=== PATIENT | male | born 1945 | race Caucasian/White ===

== ENCOUNTER 2021-09-07 11:18 | Outpatient (CLI) | payer MEDICARE, OTHER ==
[2021-09-07 20:28] LABS: SARS-CoV-2 PCR by NAA Not Detected (NotDetected)
== END 2021-09-07 11:19 | disposition home or self-care (01) ==
LOC: CSHLAB 11:18
PROVIDERS: ATTEND Internal Medicine Gastroenterology
DX: Z01.812 Encounter for preprocedural laboratory examination (principal); Z20.822 Contact with and (suspected) exposure to COVID-19
CPT/HCPCS: U0003; U0005

== ENCOUNTER 2021-09-10 07:46 | Day surgery (SDC) | payer MEDICARE, OTHER ==
[2021-09-10] MEDS ORDERED: Lidocaine 1% MPF 2 ML VIAL ONE (08:31)
[2021-09-10] MEDS ORDERED: PROPOFOL 60 ML ONE (10:07)
[2021-09-10] MEDS ORDERED: Lidocaine 1% PF 5 ML VIAL ONE (10:08)
== END 2021-09-10 12:40 | disposition home or self-care (01) ==
LOC: CSHSDC 07:46
PROVIDERS: ATTEND Internal Medicine Gastroenterology
PROC: 0DB68ZZ Excision of Stomach, Via Natural or Artificial Opening Endoscopic (ICD-10-PCS; principal; 2021-09-10)
PROC: 0DBN8ZZ Excision of Sigmoid Colon, Via Natural or Artificial Opening Endoscopic (ICD-10-PCS; 2021-09-10)
DX: Z12.11 Encounter for screening for malignant neoplasm of colon (principal); K63.5 Polyp of colon; K21.9 Gastro-esophageal reflux disease without esophagitis; K44.9 Diaphragmatic hernia without obstruction or gangrene; K25.9 Gastric ulcer, unspecified as acute or chronic, without hemorrhage or perforation; K64.9 Unspecified hemorrhoids
CPT/HCPCS: 88305; J2704

== ENCOUNTER 2023-02-24 08:47 | Day surgery (SDC) | payer MEDICARE, OTHER ==
[2023-02-22 14:20] VITALS: BMI 27.7
[2023-02-24] MEDS ORDERED: PROPOFOL 20 ML ONE (11:29)
[2023-02-24] MEDS ORDERED: Lidocaine 2% MPF 10 ML AMP (For Epidural Use) ONE (11:29)
== END 2023-02-24 12:27 | disposition home or self-care (01) ==
LOC: CSHSDC 08:47
PROVIDERS: ATTEND Internal Medicine Gastroenterology
PROC: 0DBM8ZZ Excision of Descending Colon, Via Natural or Artificial Opening Endoscopic (ICD-10-PCS; principal; 2023-02-24)
DX: D12.4 Benign neoplasm of descending colon (principal); C61 Malignant neoplasm of prostate; K21.9 Gastro-esophageal reflux disease without esophagitis; J30.9 Allergic rhinitis, unspecified; K64.9 Unspecified hemorrhoids; E78.5 Hyperlipidemia, unspecified; N40.0 Benign prostatic hyperplasia without lower urinary tract symptoms; I10 Essential (primary) hypertension; Z79.899 Other long term (current) drug therapy; Z80.0 Family history of malignant neoplasm of digestive organs
CPT/HCPCS: 88305; J2704

== ENCOUNTER 2024-04-16 08:47 | Outpatient (CLI) | payer MEDICARE, OTHER | END 2024-04-16 08:48 | disposition home or self-care (01) | LOC: CSHULT 08:47 | PROVIDERS: ATTEND Family Medicine | DX: Z13.6 Encounter for screening for cardiovascular disorders (principal); Z87.891 Personal history of nicotine dependence | CPT/HCPCS: 76706 ==

== ENCOUNTER 2025-04-29 13:29 | Outpatient (CLI) | payer MEDICARE, OTHER | END 2025-04-29 13:30 | disposition home or self-care (01) | LOC: CSHWCC 13:29 | PROVIDERS: ATTEND Nurse Practitioner Family | DX: T70.0XXD Otitic barotrauma, subsequent encounter (principal); N30.00 Acute cystitis without hematuria; R30.0 Dysuria; Z92.3 Personal history of irradiation | CPT/HCPCS: G0277 ==

== ENCOUNTER 2025-05-20 14:46 | Outpatient (CLI) | payer MEDICARE, OTHER | END 2025-05-20 14:47 | disposition home or self-care (01) | LOC: CSHWCC 14:46 | PROVIDERS: ATTEND Nurse Practitioner Family | DX: T70.0XXD Otitic barotrauma, subsequent encounter (principal); N30.00 Acute cystitis without hematuria; R30.0 Dysuria; Z92.3 Personal history of irradiation | CPT/HCPCS: G0277 ==

== ENCOUNTER 2025-05-21 12:51 | Outpatient (CLI) | payer MEDICARE, OTHER | END 2025-05-21 12:52 | disposition home or self-care (01) | LOC: CSHWCC 12:51 | PROVIDERS: ATTEND Nurse Practitioner Family | DX: T70.0XXD Otitic barotrauma, subsequent encounter (principal); N30.00 Acute cystitis without hematuria; R30.0 Dysuria; Z92.3 Personal history of irradiation | CPT/HCPCS: G0277 ==

== ENCOUNTER 2025-05-22 13:13 | Outpatient (CLI) | payer MEDICARE, OTHER | END 2025-05-22 13:14 | disposition home or self-care (01) | LOC: CSHWCC 13:13 | PROVIDERS: ATTEND Nurse Practitioner Family | DX: T70.0XXD Otitic barotrauma, subsequent encounter (principal); N30.00 Acute cystitis without hematuria; R30.0 Dysuria; Z92.3 Personal history of irradiation; L59.8 Other specified disorders of the skin and subcutaneous tissue related to radiation; Y84.2 Radiological procedure and radiotherapy as the cause of abnormal reaction of the patient, or of later complication, without mention of misadventure at the time of the procedure | CPT/HCPCS: G0277 ==

== ENCOUNTER 2025-05-29 13:10 | Outpatient (CLI) | payer MEDICARE, OTHER | END 2025-05-29 13:11 | disposition home or self-care (01) | LOC: CSHWCC 13:10 | PROVIDERS: ATTEND Nurse Practitioner Family | DX: T70.0XXD Otitic barotrauma, subsequent encounter (principal); N30.00 Acute cystitis without hematuria; R30.0 Dysuria; Z92.3 Personal history of irradiation | CPT/HCPCS: G0277 ==

== ENCOUNTER 2025-06-04 12:30 | Outpatient (CLI) | payer MEDICARE, OTHER | END 2025-06-04 12:31 | disposition home or self-care (01) | LOC: CSHWCC 12:30 | PROVIDERS: ATTEND Nurse Practitioner Family | DX: T70.0XXD Otitic barotrauma, subsequent encounter (principal); N30.00 Acute cystitis without hematuria; R30.0 Dysuria; Z92.3 Personal history of irradiation; L59.8 Other specified disorders of the skin and subcutaneous tissue related to radiation; Y84.2 Radiological procedure and radiotherapy as the cause of abnormal reaction of the patient, or of later complication, without mention of misadventure at the time of the procedure | CPT/HCPCS: G0277 ==

== ENCOUNTER 2025-06-05 12:43 | Outpatient (CLI) | payer MEDICARE, OTHER | END 2025-06-05 12:44 | disposition home or self-care (01) | LOC: CSHWCC 12:43 | PROVIDERS: ATTEND Nurse Practitioner Family | DX: N30.40 Irradiation cystitis without hematuria (principal); R30.0 Dysuria; Z92.3 Personal history of irradiation | CPT/HCPCS: G0277 ==

== ENCOUNTER 2025-06-06 12:48 | Outpatient (CLI) | payer MEDICARE, OTHER | END 2025-06-06 12:49 | disposition home or self-care (01) | LOC: CSHWCC 12:48 | PROVIDERS: ATTEND Nurse Practitioner Family | DX: N30.40 Irradiation cystitis without hematuria (principal); R30.0 Dysuria; Z92.3 Personal history of irradiation | CPT/HCPCS: G0277 ==

== ENCOUNTER 2025-06-07 12:46 | Outpatient (CLI) | payer MEDICARE, OTHER | END 2025-06-07 12:47 | disposition home or self-care (01) | LOC: CSHWCC 12:46 | PROVIDERS: ATTEND Nurse Practitioner Family | DX: N30.40 Irradiation cystitis without hematuria (principal); R30.0 Dysuria; Z92.3 Personal history of irradiation | CPT/HCPCS: G0277 ==

== ENCOUNTER 2025-06-10 12:30 | Outpatient (CLI) | payer MEDICARE, OTHER | END 2025-06-10 12:31 | disposition home or self-care (01) | LOC: CSHWCC 12:30 | PROVIDERS: ATTEND Nurse Practitioner Family | DX: N30.40 Irradiation cystitis without hematuria (principal); R30.0 Dysuria; Z92.3 Personal history of irradiation | CPT/HCPCS: G0277 ==

== ENCOUNTER 2025-06-11 16:04 | Outpatient (CLI) | payer MEDICARE, OTHER | END 2025-06-11 16:05 | disposition home or self-care (01) | LOC: CSHWCC 16:04 | PROVIDERS: ATTEND Nurse Practitioner Family | DX: N30.40 Irradiation cystitis without hematuria (principal); R30.0 Dysuria; Z92.3 Personal history of irradiation | CPT/HCPCS: G0277 ==

== ENCOUNTER 2025-06-12 12:37 | Outpatient (CLI) | payer MEDICARE, OTHER | END 2025-06-12 12:38 | disposition home or self-care (01) | LOC: CSHWCC 12:37 | PROVIDERS: ATTEND Nurse Practitioner Family | DX: N30.40 Irradiation cystitis without hematuria (principal); R30.0 Dysuria; Z92.3 Personal history of irradiation | CPT/HCPCS: G0277 ==

== ENCOUNTER 2025-06-13 12:53 | Outpatient (CLI) | payer MEDICARE, OTHER | END 2025-06-13 12:54 | disposition home or self-care (01) | LOC: CSHWCC 12:53 | PROVIDERS: ATTEND Nurse Practitioner Family | DX: N30.40 Irradiation cystitis without hematuria (principal); R30.0 Dysuria; Z92.3 Personal history of irradiation | CPT/HCPCS: G0277 ==